=== PATIENT | female | born 1990 | race Caucasian/White ===

== ENCOUNTER 2018-02-24 19:22 | Emergency (ER) | payer BC, MEDICAID ==
[2018-02-24] MEDS ORDERED: DOXYCYCLINE HYCLATE 100 MG TABLET PO ONE (20:54)
--- NOTE | 2018-02-24 21:01 | ER Document Report ---
HPI - HPI Pain Level: 4 Context: Patient is a 19-year-old female presents emergency room with a chief complaint of dog bite. Patient states that approximately 330 this afternoon she was at a family member's house where she is sitting petting the dog and unprovoked it bit her face. She has a bite on her nose as well as above her left eyebrow. she states she came to the emergency department to have it documented that she can go to work on Tuesday. She states that she is not sure of her tetanus status is updated but thinks it is since she had a baby less than 4 years ago and had to have a tetanus updated for clinicals within the past 3 years. She is declining to get a tetanus shot today and states that she can get one on Tuesday at work. She also admits to a headache. She describes it as a pressure behind her left eye which is consistent with her history of chronic migraines. She states that her headaches typically present like this with associated photo and phonophobia with nausea and vomiting. She states that she is not treated for migraines as an outpatient she does not take anything [id number] for it. States that she is a family history of penicillin and she is declining any antibiotics with penicillin base. - REPRODUCTIVE LMP: 02-18-18 Reproductive: REPORTS: : - DERM Skin Color: Normal, [place] Past Medical History - Social History Smoking Status: Current Every Day Smoker Chew tobacco use (# tins/day): No Frequency of alcohol use: Rare Family History: Other - Patient does not know family history Patient has suicidal ideation: No Patient has homicidal ideation: No - Past Medical History Cardiac Medical History: Reports: Hx Hypertension - with Pulmonary Medical History: Reports: Hx Asthma Endocrine Medical History: Reports: Hx Diabetes Mellitus Type 2 Renal/ Medical History: Denies: Hx Peritoneal Dialysis Musculoskeltal Medical History: Reports Hx Arthritis Skin Medical History: Reports Hx MRSA Psychiatric Medical History: Reports: Hx Depression Infectious Medical History: Reports: Hx MRSA - ABSCESS ON BACK Past Surgical History: Reports: Hx Section - x1, Hx Orthopedic Surgery - back - Immunizations Immunizations up to date: Yes Hx Diphtheria, Pertussis, Tetanus Vaccination: Yes Vertical Provider Document - CONSTITUTIONAL Agree With Documented VS: Yes Notes: PHYSICAL EXAM GENERAL: Alert, interacts well. HEAD: Normocephalic, atraumatic. EYES: Pupils equal, round, and reactive to light. Extraocular movements intact. ENT: Oral mucosa moist, tongue midline. nares patent without bleeding or hematoma NECK: Full range of motion. Supple. Trachea midline. No posterior pharyngeal bleeding EXTREMITIES: Moves all 4 extremities spontaneously. No edema, radial and dorsalis pedis pulses 2/4 bilaterally. No cyanosis. NEUROLOGICAL: Alert and oriented x4. Normal speech. PSYCH: Normal affect, normal mood. SKIN: Warm, dry, normal turgor. Abrasions noted on the nose and left scalp without dermal involvement or active bleeding - INFECTION CONTROL TRAVEL OUTSIDE OF THE [place] IN LAST 30 DAYS: No Course - Re-evaluation Re-evalutation: 02/24/18 21:08 Patient is a 27-year-old female is hemodynamically stable, no acute distress afebrile. Wounds do not show any concern for neurovascular injury, she is declining an updated tetanus at this time. or treatment for her migraine. Will initiate on doxycycline given her aversion to penicillin based antibiotics. Wounds irrigated and dressed at the bedside. reagrding her headache, patient does not have any focal neurologic deficits, nuchal rigidity, vital signs are within normal limits no papilledema. Patient is otherwise no acute distress and hemodynamically stable. Low index for suspicion of acute subarachnoid hemorrhage, meningitis or mass. Low suspicion for acute life-threatening etiology with intact neuro exam therefore no additional imaging or laboratory testing is indicated. Will discharge patient home with strict follow-up with PCP within the next week. - Vital Signs Vital signs: Temp Pulse Resp BP Pulse Ox 98.1 F 99 22 H 129/92 H 98 02/24/18 19:47 02/24/18 19:47 02/24/18 19:47 02/24/18 19:47 02/24/18 19:47 Discharge - Discharge Clinical Impression: Dog bite Qualifiers: Encounter type: initial encounter Qualified Code(s): W54.0XXA - Bitten by dog, initial encounter Condition: Good Disposition: HOME, SELF-CARE Instructions: Animal Bites ([facility]), Doxycycline ([facility]) Prescriptions: Doxycycline Hyclate 100 mg PO BID #10 capsule
[2018-02-24] MEDS ORDERED: DIPHENHYDRAMINE HCL 50 MG/ML VIAL IM ONE (22:05)
[2018-02-24] MEDS ORDERED: PROCHLORPERAZINE EDISYLATE INJ 10 MG/2 ML VIAL IM ONE (22:05)
[2018-02-24] MEDS ORDERED: KETOROLAC TROMETHAMINE INJ/PF 30 MG/1 ML SDV IM ONE (22:05)
[2018-02-24 23:07] VITALS: BP 123/66
== END 2018-02-24 23:09 | disposition home or self-care (01) ==
LOC: ER 19:22
DX: S00.31XA Abrasion of nose, initial encounter (principal); S00.01XA Abrasion of scalp, initial encounter; R51 Headache; W54.0XXA Bitten by dog, initial encounter; Y92.009 Unspecified place in unspecified non-institutional (private) residence as the place of occurrence of the external cause; J45.909 Unspecified asthma, uncomplicated; E11.9 Type 2 diabetes mellitus without complications; F17.200 Nicotine dependence, unspecified, uncomplicated; Z86.14 Personal history of Methicillin resistant Staphylococcus aureus infection
CPT/HCPCS: 99283; 96372; J1200; J1885; J0780